=== PATIENT | female | born 1960 | race Caucasian/White ===

== ENCOUNTER → 2019-09-14 14:55 | Outpatient (CLI) | payer OTHER, SELFPAY ==
--- NOTE | ~2019-09-14 | US_ITS ---
EXAMINATION: US pelvic complete w TV DATE: 09/14/2019 15:21 INDICATION: Pelvic pain, postmenopausal TECHNIQUE: Multiple transabdominal and endovaginal sonographic images of the pelvis were obtained. COMPARISON: 10/24/2016 FINDINGS: The uterus measures 7.4 x 3.6 x 5.1 cm. The endometrial complex measures 6 mm. The right ov artur measures 1.9 x 1.5 x 1.9 cm. The left ovary measures 2.1 x 1.7 x 1.5 cm. There is normal vascular flow in the ovaries. There is no free fluid in the pelvis. IMPRESSION: 1. No sonographic correlate for the patient's symptoms. Reviewed, dictated and finalized at location A.
== END ==
PROVIDERS: Visit Provider Advanced Practice Midwife
DX: R10.2 Pelvic and perineal pain (principal)
CPT/HCPCS: 76830; 76856

== ENCOUNTER → 2019-11-08 15:57 | Outpatient (CLI) | payer OTHER, SELFPAY ==
--- NOTE | ~2019-11-08 | MM_ITS ---
EXAMINATION: MM screening fabrizio BI w dominguez HISTORY: Screening mammogram TECHNIQUE: Craniocaudal and mediolateral oblique 3-D tomosynthesis images were obtained and synthetic 2-D images were generated. CAD analysis was submitted and interpreted. COMPARISON: 11/01/2018, 10/27/2017, 10/24/2016 bilateral digital screening mammogram examinations BREAST PARENCHYMAL COMPOSITION: There are scattered areas of fibroglandular density. FINDINGS: Stable mild fibroglandular asymmetry. There is no evidence of suspicious mass, calcificatio n, or architectural distortion to suggest malignancy in either breast. There has been no suspicious i nterval change. IMPRESSION: 1. No mammographic evidence of malignancy. 2. Recommend routine screening mammography in one year. BI-RADS Category 2: Benign finding(s). Reviewed, dictated and finalized at location B.
== END ==
PROVIDERS: PCP Internal Medicine; Visit Provider Advanced Practice Midwife
DX: Z12.31 Encounter for screening mammogram for malignant neoplasm of breast (principal)
CPT/HCPCS: 77063; 77067

== ENCOUNTER 2020-04-15 12:37 | Emergency (ER) | payer OTHER, SELFPAY ==
[2020-04-15 12:55] VITALS: BP 126/86; PULSE 77; RESP 16; TEMP 37.1; O2SAT 100
--- NOTE | 2020-04-15 13:15 | ED.EYEPROB ---
HPI - Eye Problem General Chief complaint: Eye Problems Stated complaint: eye injury Time Seen by Provider: 04/15/20 12:51 Source: patient and RN notes reviewed Mode of arrival: ambulatory Limitations: no limitations History of Present Illness HPI Narrative: Patient presents today complaining of irritation and possible injury to the left eye. States she accidentally poked herself in the left eye with a stick as she was cutting brush outside 2 days ago. She is complaining of a burning sensation and some watering. Denies foreign body sensation. Denies vision changes. Reports that this morning the eye was slightly reddened. States it has become more irritated due to the constant gomez of air that comes out of her CPAP at night. She has tried to flush the eye and use some [id number] eyedrops without relief. MD chief complaint: eye pain Related Data Home Medications Medication Instructions Recorded Confirmed bupropion HCl mg PO 04/15/20 lisinopril-hydrochlorothiazide tablet 04/15/20 spironolactone 04/15/20 Allergies Allergy/AdvReac Type Severity Reaction Status Date / Time aspirin Allergy Unknown Verified 04/15/20 12:49 Review of Systems Review of Systems: Narrative: CONSTITUTIONAL: Denies body aches, fever, chills, or sweats. EYES: Denies visual changes, or discharge. + Redness, watering, and burning ENT: Denies rhinorrhea, congestion, sore throat, or otalgia. CARDIOVASCULAR: Denies chest pain, palpitations, or edema. RESPIRATORY: Denies cough or dyspnea. GASTROINTESTINAL: Denies abdominal pain, nausea, vomiting, or diarrhea. GENITOURINARY: Denies dysuria or hematuria. SKIN: Denies rash, itching, or wounds. MUSCULOSKELETAL: Denies back pain, joint pain, or myalgia. NEUROLOGIC: Denies headache, numbness, tingling, or weakness. PSYCH: Denies depression or anxiety. [facility] Past Medical History Medical History (Updated 04/15/20 @ 17:08 by Clau Spain, TAKER OFF, ) Hypertension Comments At time of signature, I have reviewed and agree with nursing past medical, surgical, social and family history unless otherwise noted. Please see nursing chart for further information. There is no relevant family history pertinent to the presenting complaint Exam Narrative: Exam Narrative: GENERAL: Well-appearing, well-nourished, and in no acute distress. HEAD: Normocephalic, atraumatic. EYES: EOMI. PERRL. No redness or drainage bilaterally. Lids and lashes normal bilaterally. Left conjunctive a mildly erythematous. Right eye normal. See procedure note. ENT: Mucous membranes pink and moist. NECK: Normal AROM. CHEST: No respiratory distress. EXTREMITIES: Normal range of motion. No edema. SKIN: Warm, dry, no rash. Capillary refill normal. Normal skin turgor. NEURO: No focal deficits. Alert and oriented x3. Gait steady. PSYCH: Normal affect. No signs of depression or anxiety. Course Vital Signs Vital signs: Vital Signs Temperature 98.8 F 04/15/20 12:55 Pulse Rate 77 04/15/20 12:55 Respiratory Rate 16 04/15/20 12:55 Blood Pressure 126/86 04/15/20 12:55 Pulse Oximetry 100 04/15/20 12:55 Temperature 98.8 F 04/15/20 12:55 Pulse Rate 77 04/15/20 12:55 Respiratory Rate 16 04/15/20 12:55 Blood Pressure 126/86 04/15/20 12:55 Pulse Oximetry 100 04/15/20 12:55 Reviewed. Pt has been instructed to follow up with her PCP regarding her elevated blood pressure today. Procedures Other Procedure Procedure 1: Other Procedure: Left eye was anesthetized with 1 drop of tetracaine and anesthesia was achieved. The eye was flushed with eye wash. Lid was inverted and examined. Moistened Qtip was used to sweep underneath the upper eyelid with 0 foreign bodies resulting. Cornea was dyed with fluorescein and 1 abrasion was noted at the 6 o'clock position of the iris. Pt tolerated procedure well. MDM - Eye Problem Differential Diagnosis Differential diagnosis: Likely corneal ab
== END 2020-04-15 13:26 | disposition home or self-care (01) ==
PROVIDERS: Emergency Provider Nurse Practitioner; PCP Internal Medicine
DX: S05.02XA Injury of conjunctiva and corneal abrasion without foreign body, left eye, initial encounter (principal); W22.8XXA Striking against or struck by other objects, initial encounter; I10 Essential (primary) hypertension
CPT/HCPCS: 99213; A9270; G0463

== ENCOUNTER 2020-07-11 15:38 | Outpatient (CLI) | payer OTHER, SELFPAY ==
--- NOTE | ~2020-07-11 | XR_ITS ---
EXAMINATION: XR chest 2V DATE: 07/11/2020 16:00 INDICATION: Cough. Wheezing. Chest tightness. TECHNIQUE: Frontal and lateral views of the chest were obtained. COMPARISON: None. FINDINGS: The chest demonstrates clear lungs without pneumonia, pleural effusion, or pneumothorax. Th e heart size is normal. IMPRESSION: 1. No acute cardiopulmonary disease. Reviewed, dictated and finalized at location A.
== END 2020-07-11 15:39 | disposition home or self-care (01) ==
PROVIDERS: PCP Internal Medicine
DX: R05 Cough (principal)
CPT/HCPCS: 71046

== ENCOUNTER → 2021-02-05 11:45 | Outpatient (CLI) | payer OTHER, SELFPAY ==
--- NOTE | ~2021-02-05 | MM_ITS ---
EXAMINATION: MM screening fabrizio BI w dominguez HISTORY: Screening TECHNIQUE: Craniocaudal and mediolateral oblique 3-D tomosynthesis images were obtained and synthetic 2-D images were generated. CAD analysis was submitted and interpreted. COMPARISON: Comparison to multiple prior studies sequentially, with oldest reviewed study dated 08/28. BREAST PARENCHYMAL COMPOSITION: The breasts are heterogeneously dense, which may obscure small masses . FINDINGS: There is no evidence of suspicious mass, calcification, or architectural distortion to sugg est malignancy in either breast. There has been no suspicious interval change. IMPRESSION: 1. No mammographic evidence of malignancy. 2. Recommend routine screening mammography in one year. BI-RADS Category 1: Negative Reviewed, dictated and finalized at location A. [employer]GAL [employer]GER
== END ==
PROVIDERS: PCP Internal Medicine; Visit Provider Advanced Practice Midwife
DX: Z12.31 Encounter for screening mammogram for malignant neoplasm of breast (principal)
CPT/HCPCS: 77063; 77067

== ENCOUNTER 2021-09-15 06:53 | Emergency (ER) | payer OTHER, SELFPAY ==
--- NOTE | ~2021-09-15 | CT_ITS ---
EXAMINATION: CT brain wo con DATE: 09/15/2021 08:23 INDICATION: Dizziness TECHNIQUE: Computed tomography (CT) of the head was performed without intravenous contrast. The mA wa s adjusted according to patient size. Iterative reconstruction technique was employed. Exam dose: 60 5.33 mGy-cm total exam DLP. COMPARISON: None FINDINGS: Bilateral carotid siphon internal carotid artery calcifications. No intracranial mass lesio n or hemorrhage or cerebrovascular accident. No midline shift or mass effect. Normal ventricular size . No subdural or epidural hematoma. Patchy opacification of the ethmoid air cells bilaterally. Mildly compressive thickening of the left frontal sinus and sphenoid sinuses. The mastoid air cells are normally developed and aerated. No fracture or bone destruction of the cranial vault. IMPRESSION: Cerebral atherosclerosis; no significant intracranial abnormality is noted otherwise Reviewed, dictated and finalized at Location A. Reviewed, dictated and finalized at location A.
--- NOTE | ~2021-09-15 | XR_ITS ---
XR chest 1V portable DATE: 09/15/2021 07:47 INDICATION: Dizziness followed by nausea and vomiting TECHNIQUE: Portable upright AP chest on 09/15/2021 at 0741 hours COMPARISON: 07/11/2020 PA and lateral views FINDINGS: Normal heart size. No hilar or mediastinal enlargement. No pulmonary infiltrate or consolid ation, pleural effusion or pulmonary vascular congestion or pneumothorax. IMPRESSION: No active cardiopulmonary disease Reviewed, dictated and finalized at location A.
[2021-09-15 07:05] VITALS: BP 132/75; PULSE 69; RESP 12; RESP 15; TEMP 36.4; O2SAT 98
[2021-09-15 07:16] VITALS: BP 124/74; PULSE 68; RESP 17; O2SAT 97
--- NOTE | 2021-09-15 07:32 | ED.DIZZY ---
HPI - Dizziness General Chief Complaint: Dizziness Stated Complaint: dizziness, N/V Time Seen by Provider: 09/15/21 07:31 Source: patient Mode of arrival: ambulatory Limitations: no limitations History of Present Illness HPI Narrative: 61 years old white female came to the emergency room with dizziness, nausea and vomiting. Patient reported waking up this morning and the rolling over in bed suddenly developed dizziness, everything was spinning associated with diaphoresis, nausea and vomited twice. Patient had similar symptoms at least twice in the past, today is the worst. Patient denies any fever, chills, chest pain, shortness of breath, headache or neurodeficit. Related Data Home Medications Medication Instructions Recorded Confirmed bupropion HCl 300 mg 24 hr tablet, mg PO 04/15/20 extended release lisinopril 10 tablet 04/15/20 mg-hydrochlorothiazide 12.5 mg tablet spironolactone 100 mg tablet 04/15/20 Allergies Allergy/AdvReac Type Severity Reaction Status Date / Time aspirin Allergy Severe Swelling Verified 09/15/21 07:11 of Lip/Tongue/Throat Review of Systems Review of Systems: All systems reviewed & are unremarkable except as noted in HPI and below PMFSH Past Medical History Medical History Hypertension Exam Narrative: General appearance: Well-developed, well-nourished, laying down in bed in 1 position, unable to move even a little 1 because this will trigger dizziness. Skin: Normal color Head: Normocephalic, nontraumatic Eyes: Clear conjunctiva ENT: Oropharynx normal, ears normal, nose normal Neck: Supple, nontender Chest and respiratory: Airway patent, no respiratory distress, no accessory muscle use Heart: Regular rate/rhythm Abdomen: Soft, nontender, no organomegaly, quiet bowel sounds Vascular: Normal peripheral pulses, normal capillary refill. 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, no gross motor deficit Course Course Emergency Course: Benign positional vertigo is my concern Vital Signs Vital signs: Vital Signs Temperature 36.4 C L 09/15/21 07:05 Pulse Rate 69 09/15/21 07:05 Respiratory Rate 12 09/15/21 07:05 Blood Pressure 132/75 09/15/21 07:05 Pulse Oximetry 98 09/15/21 07:05 Oxygen Delivery Room Air 09/15/21 07:05 Temperature 36.4 C L 09/15/21 07:05 Pulse Rate 68 09/15/21 07:16 Respiratory Rate 17 09/15/21 07:16 Blood Pressure 124/74 09/15/21 07:16 Pulse Oximetry 97 09/15/21 07:16 Oxygen Delivery Room Air 09/15/21 07:05 MDM - Dizziness Lab Data Result diagrams: 09/15/21 07:47 09/15/21 07:47 Labs: Lab Results 09/15/21 09/15/21 09/15/21 Range/Units 07:47 07:47 07:47 WBC 7.6 (4.5-10.0) K/mm3 RBC 4.33 (4.2-5.4) M/mm3 Hgb 13.0 (12.0-15.0) g/dL Hct 40.5 (37.0-47.0) % MCV 93.5 (80-100) fl MCH 30.0 (26-34) pg MCHC 32.1 (32-36) g/dl RDW 12.2 (11.5-14.5) % Plt Count 244 (150-375) k/mm3 MPV 9.3 (7.4-10.4) fl Immature Gran % (Auto) 0.3 (0-0.5) % Neut % (Auto) 61.4 (45.5-73.1) % Lymph % (Auto) 24.8 (18.3-44.2) % [place] % (Auto) 6.8 (2.6-8.5) % Eos % (Auto) 5.8 H (0-4.4) % Baso % (Auto) 0.9 (0.2-1.2) % Lymph # (Auto) 1.87 (0.9-3.2) K/mm3 [place] # (Auto) 0.5 (0.1-0.6) K/mm3 Eos # (Auto) 0.4 H (0-0.3) K/mm3 Baso # (Auto) 0.1 (0.0-0.1) K/mm3 Abs Immat Gran (auto) 0.02 (0.00-0.031) K/mm3 Absolute Neuts (auto) 4.6 (1.3-6.7) K/mm3 Absolute Nucleated RBC 0.0 (0.0-0.012)
--- NOTE | 2021-09-15 07:33 | ECG_ITS ---
Measurements Intervals [place] Rate: 64 P: 61 AR: 255 QRS: 12 QRSD: 84 T: 38 QT: 416 QTc: 429 Interpretive Statements SINUS RHYTHM WITH FIRST DEGREE AV BLOCK OTHERWISE UNREMARKABLE ECG NO PREVIOUS ECG AVAILABLE FOR COMPARISON Electronically Signed On 09-15-2021 8:27:47 CDT by Lon Burroughs M.D.
[2021-09-15] MEDS: ONDANSETRON INJ 4 MG/2 ML VIAL IV PUSH (07:52)
[2021-09-15] MEDS: MECLIZINE HCL 25 MG TABLET PO (07:52)
[2021-09-15] MEDS: diazePAM INJ (*CRX) 10 MG/2 ML SYRINGE 5 MG IV PUSH (07:52)
[2021-09-15 07:55] LABS: Basophils Absolute Auto 0.1 K/mm3 (0.0-0.1); Basophils Percent Auto 0.9 % (0.2-1.2); Eosinophils Absolute Auto 0.4 K/mm3 (0-0.3); Eosinophils Percent Auto 5.8 % (0-4.4); Hematocrit 40.5 % (37.0-47.0); Immature Granulocyte Absolute 0.02 K/mm3 (0.00-0.031); Immature Granulocyte Percent A 0.3 % (0-0.5); Lymphocytes Absolute Auto 1.87 K/mm3 (0.9-3.2); Lymphocytes Percent Auto 24.8 % (18.3-44.2); Mean Corpuscular HGB Conc 32.1 g/dl (32-36); Mean Corpuscular Volume 93.5 fl (80-100); Mean Platelet Volume 9.3 fl (7.4-10.4); Monocytes Absolute Auto 0.5 K/mm3 (0.1-0.6); Monocytes Percent Auto 6.8 % (2.6-8.5); Neutrophils Absolute Auto 4.6 K/mm3 (1.3-6.7); Neutrophils Percent Auto 61.4 % (45.5-73.1); Platelet Count Result 244 k/mm3 (150-375); Red Blood Count 4.33 M/mm3 (4.2-5.4); Red Cell Distribution Width 12.2 % (11.5-14.5); White Blood Count 7.6 K/mm3 (4.5-10.0)
[2021-09-15 08:03] LABS: Alanine Aminotransferase 28 U/L (6-35); Albumin Level 4.4 g/dL (3.5-5.1); Alkaline Phosphatase 92 U/L (38-126); Anion Gap 9 mmol/L (8-16); Aspartate Amino Transferase 30 U/L (14-36); Bilirubin,Total 0.8 mg/dL (0.2-1.3); Blood Urea Nitrogen 18 mg/dL (7-17); Carbon Dioxide 30 mmol/L (22-30); Chloride 101 mmol/L (98-107); Estimated CRCL calculation 57 ml/min; Estimated Glomerular Filt Rate > 60; Glucose 145 mg/dL (65-110); Potassium 4.1 mmol/L (3.4-5.0); Sodium 140 mmol/L (137-145)
[2021-09-15 08:15] LABS: Troponin I < 0.012 ng/mL (0.000-0.034)
[2021-09-15 09:19] LABS: Appearance Urine Clear (Clear); Bilirubin Urine Negative (Negative); Blood Urine Negative (Negative); Color Urine Yellow (Yellow); Glucose Urine UA Negative (Negative); Ketones Urine Negative (Negative); Leukocyte Esterase Ur 1+ LEU/UL (Negative); Nitrate Urine Negative (Negative); Protein Urine Negative (Negative); Urobilinogen Urine 0.2 mg/dL (<2.0)
[2021-09-15 09:29] LABS: Mucus Urine Rare /lpf; RBC Urine 0-2 /hpf (0-2); Squamous Epithelial Cell Urine Rare /hpf (Few)
[2021-09-15 09:36] LABS: Add Urine Microscopic? YES
[2021-09-15 09:46] VITALS: BP 111/71; PULSE 89; RESP 18; O2SAT 98
== END 2021-09-15 09:47 | disposition home or self-care (01) ==
PROVIDERS: Emergency Provider Emergency Medicine; PCP Internal Medicine
DX: H81.10 Benign paroxysmal vertigo, unspecified ear (principal); I10 Essential (primary) hypertension
CPT/HCPCS: 36415; 70450; 71045; 80053; 81001; 84484; 85025; 85380; 87086; 93005; 96374; 96375; 99284; A9270; J2405; J3360

== ENCOUNTER → 2023-01-28 12:24 | Outpatient (CLI) | payer OTHER, SELFPAY ==
--- NOTE | ~2023-01-28 | MM_ITS ---
EXAMINATION: MM screening fabrizio BI w dominguez HISTORY: Screening mammogram TECHNIQUE: Craniocaudal and mediolateral oblique 3-D tomosynthesis images were obtained and synthetic 2-D images were generated. CAD analysis was submitted and interpreted. COMPARISON: 02/05/2021, 11/08/2019, 11/01/2018 bilateral screening mammogram examinations BREAST PARENCHYMAL COMPOSITION: The breasts are heterogeneously dense, which may obscure small masses . FINDINGS: There is no evidence of suspicious mass, calcification, or architectural distortion to sugg est malignancy in either breast. There has been no suspicious interval change. IMPRESSION: 1. No mammographic evidence of malignancy. 2. Recommend routine screening mammography in one year. BI-RADS Category 1: Negative Reviewed, dictated and finalized at location A. MOBILE DEVELOPER
== END ==
PROVIDERS: PCP Obstetrics & Gynecology; Visit Provider Obstetrics & Gynecology
DX: Z12.31 Encounter for screening mammogram for malignant neoplasm of breast (principal)
CPT/HCPCS: 77063; 77067